=== PATIENT | male | born 2000 | race Caucasian/White ===

== ENCOUNTER 2021-04-04 16:05 | Emergency (ER) | payer BC, SELFPAY ==
[2021-04-04 16:06] VITALS: BP 146/84; PULSE 88; RESP 17; TEMP 36.4; O2SAT 98; BMI 24.5
--- NOTE | 2021-04-04 18:07 | EDS_ITS ---
HPI History of Present Illness Chief Complaint: Laceration Detail of Chief Complaint: Left thumb laceration Informant: patient Onset/Context/Timing Onset: Today and Hours Timing: Continuous Current Severity: Mild Maximum Severity: Mild Associated Symptoms Associated Symptoms: Negative for Parasthesia and Weakness Narrative Narrative: 21-year-old male thinks his last tetanus shot was around 9 years ago and wants to be updated. He is right-hand dominant. Laceration of his left thumb on a piece of metal. While working on his vehicle. Denies any other injuries. Denies any numbness. Tetanus Immunization: Unknown Prior similar symptoms: No Recent Illness/Hospitalization: No PFSH PFS Medical History Asthma Home Medications NK 04/04/21 [History Last Taken Unknown] Allergy/AdvReac Type Severity Reaction Status Date / Time Penicillins [PCN] Allergy Rash Verified 04/04/21 16:08 Social History Smoking Status: Never smoker ROS ROS ED ROS Narrative Patient denies any recent illness. He denies any nausea, vomiting, diarrhea or fever. Review of Systems ROS Unobtainable: Denies due to encephalopathy Constitutional Constitutional ED: Denies frequent falls Eyes Eyes: Denies change in vision ENT ENT ED: Denies ear pain or sore throat Cardiovascular Cardiovascular: Denies chest pain Respiratory/Chest Respiratory/Chest: Denies dyspnea Gastrointestinal Gastrointestinal: Denies abdominal pain, diarrhea, nausea or vomiting Genitourinary Genitourinary ED: Denies dysuria Musculoskeletal Musculoskeletal: Denies myalgias Integumentary Denies rash Neurologic Neurologic: Denies headache(s) Psychiatric Psychiatric: Denies depression Endocrine Endocrinology: Denies polyuria Hematologic/Lymphatic Hematologic/Lymphatic: Denies easy bruising Allergic/Immunologic Allergic/Immunologic ED: Denies urticaria EXAM Physical Exam Narrative Exam Narrative: Young male no acute distress. Vital signs stable afebrile. Left hand thumb laceration on the radial side of the nail. Parallel to it. Not involving the nail or nailbed. Is about 3 cm in length and will need to be repaired. The hand is neurovascular intact with full range of motion. No fo reign body. No bony deformity. Otherwise exam unremarkable. Const Vital Signs: 04/04/21 16:06 Temperature 97.6 F L Temperature Source Temporal Pulse Rate 88 Respiratory Rate 17 Blood Pressure 146/84 H Blood Pressure Mean 104 Pulse Ox 98 Oxygen Delivery Method Room Air Positive well nourished and well developed General Appearance ED: well developed HEENT normocephalic and atraumatic Eyes PERRL and EOMs intact bilaterally Neck full ROM and supple Chest Wall inspection of chest normal Resp normal respiratory effort Cardio regular rate, regular rhythm and no murmurs GI non-tender and non-distended Palpation: soft Neuro oriented x3, CN's II-XII intact bilaterally, moves all extremities, no focal motor deficits and no sensory deficits noted Sensorium / Orientation: alert, oriented to person, oriented to place and oriented to time Psych mental status grossly normal Skin Skin Narrative: Approximately 3 cm thumb laceration on the left parallel to the nail on the radial side. On the dorsum. Lesions: no lesions Rashes: no rashes Trauma: laceration MDM MDM MDM Narrative Medical decision making narrative: Laceration repair left thumb. Area was cleaned with Shur-Clens. Washed with saline. Locally anesthetized with lidocaine. Closed using 3 simple interrupted 5-0 Ethilon sutures. Proper hemostasis and wound closure obtained. Procedures Lacerations Left thumb laceration: Length: 1.18 in Depth: Sub Q Shape: Linear Prep: Sterile Conditions and Shure-Clens Laceration repair: Irrigated and Lidocaine Discharge Plan Triage Chief Complaint: Laceration ED Provider: Ricci Alcala Dx/Rx/DC Orders Prescriptions: No Action NK RF: 0 Primary Care Provider: Care Physician,No Primary Referrals: Care Physician,No Primary [Primary Care Provider] -
[2021-04-04] MEDS: Diphth,Pertuss(Acell),Tet Vac 0.5 ML Vial IM (18:23)
[2021-04-04] MEDS: Lidocaine 1% (20 ml mdv) 20 ML Vial 5 ML INFILT (18:27)
[2021-04-04 21:37] VITALS: BP 130/89; PULSE 76; RESP 16
== END 2021-04-04 21:38 | disposition home or self-care (01) ==
PROVIDERS: Emergency Provider Emergency Medicine
DX: S61.012A Laceration without foreign body of left thumb without damage to nail, initial encounter (principal); W26.8XXA Contact with other sharp object(s), not elsewhere classified, initial encounter; Y93.89 Activity, other specified; Y92.89 Other specified places as the place of occurrence of the external cause; Y99.8 Other external cause status; J45.909 Unspecified asthma, uncomplicated
CPT/HCPCS: 12002; 90471; 90715; 99283

== ENCOUNTER 2023-02-13 12:50 | Emergency (ER) | payer BC, SELFPAY ==
[2023-02-13 12:51] VITALS: BP 140/90; PULSE 68; RESP 16; TEMP 36.6; O2SAT 98; BMI 25.4
--- NOTE | 2023-02-13 13:12 | EDS_ITS ---
HPI <ULI Virk - Last Filed: 02/13/23 15:51> History of Present Illness Chief Complaint: Upper Extremity Injury Narrative Narrative: Patient presenting today with numbness and tingling in his left hand and fingers that radiates to his shoulder that started this morning. He states that yesterday he was using a screwdriver to tighten up a coil when the screwdriver slipped and stabbed him in the left palm. He states that it penetrated pretty deep but he was able to get it out and then superglued the area that was bleeding. Patient is a full range of motion in his left upper extremity and is not complaining of any pain. Tetanus was updated in 2020. PMH includes asthma. PFSH <ULI Virk - Last Filed: 02/13/23 15:51> PFSH Medical History Asthma Home Medications cephalexin 500 mg capsule 500 mg PO Q6 5 days #20 CAPSULES 02/13/23 [Rx Last Taken Unknown] Allergy/AdvReac Type Severity Reaction Status Date / Time Penicillins [PCN] Allergy Rash Verified 04/04/21 16:08 Social History Smoking Status: Never smoker ROS <ULI Virk - Last Filed: 02/13/23 15:51> ROS ED Constitutional Constitutional ED: Denies chills or fever(s) Cardiovascular Cardiovascular: Denies chest pain or palpitations Respiratory/Chest Respiratory/Chest: Denies cough or dyspnea Gastrointestinal Gastrointestinal: Denies abdominal pain, nausea or vomiting Musculoskeletal Musculoskeletal: Reports arthralgias and myalgias; Denies back pain Integumentary Reports Abrasions; Denies abscess or rash Neurologic Neurologic: Reports paresthesias; Denies dizziness Psychiatric Psychiatric: Denies anxiety, depression, suicidal ideation or suicidal thoughts EXAM <ULI Virk - Last Filed: 02/13/23 15:51> Physical Exam Const Vital Signs: 02/13/23 12:51 Temperature 97.8 F Temperature Source Temporal Pulse Rate 68 Respiratory Rate 16 Blood Pressure 140/90 H Blood Pressure Mean 106 Pulse Ox 98 Oxygen Delivery Method Room Air Positive well nourished, well developed and no apparent distress General Appearance ED: well developed HEENT Reports normocephalic and head/scalp atraumatic Mouth ED: Yes moist mucous membranes normal Eyes PERRL and EOMs intact bilaterally Neck full ROM and supple Chest Wall inspection of chest normal Resp normal respiratory effort and clear to auscultation bilaterally Cardio regular rate and regular rhythm GI soft to palpation, non-tender, non-distended and no masses Back/Spine normal ROM and normal to inspection Extremity normal to inspection and full ROM Extremity Narrative: Radial pulses 2+ and equal bilaterally, sensation intact, good capillary refill. Small abrasion harry to center of patient's left palm. Neuro oriented x3, CN's II-XII intact bilaterally, moves all extremities, no focal motor deficits and no sensory deficits noted Sensorium / Orientation: awake and alert Psych mental status grossly normal and thought process normal Skin Skin Narrative: Small abrasion to center of left palm. [facility] <ULI Virk - Last Filed: 02/13/23 15:51> [facility] Narrative Medical decision making narrative: Patient's presenting with pain in his left hand after accidentally stabbing his palm with a screwdriver yesterday evening. He states that he did clean the wound after this happened and then he put superglue over top of it. He woke up this morning and had feelings of his arm being asleep in his entire left arm starting at his left shoulder and radiating down to his fingers.this does not make sense given patient's injury was in his palm and he had no injury to his shoulder or upper arm. He also thinks that he could have slept on his arm wrong. X-rays were obtained and there is no fracture in the hand or foreign body. Superglue was dissolved over the wound and the area was cleaned and irrigated and bacitracin ointment was applied along with a clean dry bandage. Patient was placed on antibiotics and has been given return instructions. His tetanus is up-to-date. He will be discharged home in stable condition and is to follow-up with PCP. He is comfortable with plan. Radiography Diagnostic Testing: L Hand x-ray reviewed and interpreted by attending ED physician. <Dr. Michelle Urban MD - Last Filed: 02/13/23 15:57> [facility] Treatment and Re-Evaluation Narrative: Patient seen and evaluated with CHAPINCITO. I personally interviewed and examined the patient. I was involved in all aspects of patient's orders, interpretation of results, and treatment. Patient present secondary to left hand injury. Yesterday he was trying to repair a generator when he stabbed his left palm with a Regalado head screwdriver. He pulled it out, wash his hand with Ana Cristina dish soap, and then glued the skin. Today he has had some increased pain and reports some paresthesias up his left arm. Patient sitting upright in bed no acute distress. Nontoxic-appearing. Head and neck examination is unremarkable. Heart is regular rate and rhythm. Lung sounds are clear. Abdomen is soft and nontender. Left hand examination reveals stab wound to the center of the left palm. No sig nificant surrounding erythema or fluctuance. Good cap refill distally. Normal sensation and strength on testing. Left hand x-rays reveal no evidence of foreign body. No acute bony injury per my interpretation. Glue that was placed on the patient's hand is removed. Wound is thoroughly cleansed and irrigated. Dressing is applied and patient will be initiated on antibiotics. He was instructed on appropriate hand elevation and cleaning of his wound. Discharge Plan Triage Chief Complaint: Upper Extremity Injury ED Midlevel Provider: Sharron Tavares ED Provider: Michelle Urban Dx/Rx/DC Orders Clinical Impression: Penetrating traumatic injury of hand Instructions: ED Puncture Wound (General) Prescriptions: New cephalexin 500 mg capsule 500 mg PO Q6 5 Days Qty: 20 0RF Primary Care Provider: Care Physician,No Primary Referrals: Ayo Albert MD [Med Staff - Bilingual Interpreter] - 1-2 Weeks Care Physician,No Primary [Primary Care Provider] - Activity Restrictions/Additional Instructions: If you do not have a PCP you can follow-up with someone I have referred you to for preventative care. Please return for any signs of infection in your hand such as redness, swelling, pus-like discharge, fever. Rest, ice your hand, elevate it. Disposition Disposition: Home, Self Care Discharge Date/Time: 02/13/23 14:36
--- NOTE | 2023-02-13 13:15 | RAD_ITS ---
INDICATION: penetrating injury EXAMINATION/TECHNIQUE: X-RAY - LEFT XR Hand Min 3 Views 3 VIEWS COMPARISON: None. FINDINGS: SOFT TISSUES: No soft tissue swelling or gas. No radiopaque foreign body. BONES/JOINTS: No acute fracture or subluxation.. Normal alignment. Preservation of the joint space.. No sclerotic or destructive changes observed. RAD/Hand Min 3 Views IMPRESSION: Negative. Electronically Signed: Giorgio Vaughn MD, CHICHI at 13:44 EDT ,
== END 2023-02-13 14:36 | disposition home or self-care (01) ==
PROVIDERS: Emergency Provider Emergency Medicine; Visit Provider Emergency Medicine
DX: S61.432A Puncture wound without foreign body of left hand, initial encounter (principal); W27.0XXA Contact with workbench tool, initial encounter
CPT/HCPCS: 73130; 99282